=== PATIENT | female | born 1985 | race African-American/Black ===

== ENCOUNTER 2023-11-02 13:51 | Observation (INO) | payer OTHER, SELFPAY ==
[2023-11-02] VITALS (13 sets, daily range): BP systolic 140–195; BP diastolic 82–108; PULSE 91–98; RESP 16–20; TEMP 36.6–37.6; O2SAT 92–100; BMI 73.7
--- NOTE | ~2023-11-02 | CT_ITS ---
EXAMINATION: CT abdomen pelvis w con DATE: 11/02/2023 16:27 INDICATION: band around upper abd/RUQ, RLQ pain TECHNIQUE: Computed tomography (CT) of the abdomen and pelvis was performed with 100 mL Omnipaque-350 intravenous contrast. Automated exposure control and iterative reconstruction technique were employe d. The dose-length product was 1639.30 mGy-cm. COMPARISON: None. FINDINGS: Lower thorax: Unremarkable Liver: Normal. Biliary/Gallbladder: Mild gallbladder distention. Moderate pericholecystic inflammatory change. Galls tones. Hepatomegaly No bile duct dilation. Pancreas: No mass or duct dilation. Spleen: Normal. Adrenals:No mass. Kidneys: No suspicious mass, obstructing stone, or hydronephrosis. GI tract: No small or large bowel dilation. Normal appendix. Mesentery/Peritoneum: Trace perihepatic fluid. No mass or free air.. Retroperitoneum: No mass. Pelvis: Pelvic organs are within normal limits. Soft Tissues: Minimal, uncomplicated fat-containing umbilical hernia. Moderate deep subcutaneous stra nding over the anterior abdomen. Bones: No acute osseous finding. IMPRESSION: CT findings concerning for acute cholecystitis. Subcutaneous fat stranding in the anterior abdomen, probably representing nonspecific soft tissue kathy ma and left there are clinical findings of cellulitis or contusion. Reviewed, dictated and finalized at location K. IMPRESSION: CT findings concerning for acute cholecystitis. Subcutaneous fat stranding in the anterior abdomen, probably representing nonsp ecific soft tissue edema and left there are clinical findings of cellulitis or contusion.
--- NOTE | ~2023-11-02 | US_ITS ---
EXAMINATION: US perc cholecystostomy w imag DATE: 11/03/2023 15:42 INDICATION: Acute cholecystitis. TECHNIQUE: The procedure including the risks, benefits, and alternatives was discussed with the patie nt. Risks discussed included bleeding including hemorrhage, infection, and bile peritonitis. Oral and written consent were obtained. A timeout was performed to verify the patient's name, date of sharmin h, and procedure to be performed. The skin overlying the liver and gallbladder was prepped and draped in usual sterile fashion. Anesthetic was administered with 1% lidocaine subcutaneously. An 8.5 Fr catheter was inserted into the gallbladder by trocar technique. The metal stiffener and trocar needle were removed, and the pigtail tip was locked. Bile was aspirated and sent for culture. The catheter was stitched to the skin with suture. There were no immediate complications. FINDINGS: Ultrasound images demonstrate the catheter within the gallbladder. 6 mL bile was aspirated. IMPRESSION: 1. Successful ultrasound-guided cholecystostomy tube placement. 2. 6 mL black bile was sent for aerobic and anaerobic cultures. 3. A catheter cholangiogram may be performed not less than 48 hours after tube placement if clinicall y indicated to assess cystic duct patency. If cholecystectomy is not eventually performed and the inf ectious episode has resolved, the tube may be removed over a guidewire, preferably not less than 3 we eks after placement to allow time for a mature catheter tract to form to prevent bile leakage and per itonitis. Reviewed, dictated and finalized at location A. IMPRESSION: 1. Successful ultrasound-guided cholecystostomy tube placement. 2. 6 mL black bile was sent for aerobic and anaerobic cultures. 3. A catheter cholangiogram may be performed not less than 48 hours after tube placement if clinically indicated to assess cystic duct patency. If cholecystec riky is not eventually performed and the infectious episode has resolved, the t ube may be removed over a guidewire, preferably not less than 3 weeks after krysta cement to allow time for a mature catheter tract to form to prevent bile leakag e and peritonitis.
--- NOTE | 2023-11-02 15:09 | ED.ABDPAIN ---
HPI - Abdominal Pain General Chief Complaint: Abdominal Pain Stated Complaint: vomiting and RLQ abd pain Time Seen by Provider: 11/02/23 15:10 Focused HPI: Patient is a 38 y/o female who presents to the ED with c/o ABD pain. Patient reports she unintentionally ate pork last week around 10/28. She states she does not typically react well to pork and will have associated GI upset. Began feeling nauseous after eating the pork. Has since developed pain throughout her upper abdomen, like a band around her upper abdomen radiating around her back, as well as pain in her RLQ. She reports N/V over the past few days, as well as constipation. States last BM was 4 days ago. She attempted Goodie Powder and Ex-lax w/o relief of pain. Denies fevers, urinary complaints. GENERAL: Uncomfortable-appearing, morbidly obese with BMI of 73.8, and in no acute distress. HEAD: Normocephalic, atraumatic. CHEST: Clear to auscultation. ?No respiratory distress. HEART: Regular rate and rhythm.? ABD: Diffuse tenderness throughout upper abdomen, worst in epigastric region and RUQ, TTP in RLQ. No rebound. Mildly hypoactive BS. NEURO: ?Alert and oriented x3. Patient screened in triage and initial orders placed.? ?Additional care and disposition to be based upon?diagnostic testing and treatment. Source: patient Mode of arrival: ambulatory Limitations: no limitations Related Data Home Medications Medication Instructions Recorded Confirmed amlodipine 10 mg tablet 10 mg PO DAILY 11/02/23 11/02/23 bupropion HCl 100 mg tablet,12 hr 100 mg PO BID 11/02/23 11/02/23 sustained-release dulaglutide 1.5 mg/0.5 mL 1.5 mg subcut WEEKLY 11/02/23 11/02/23 subcutaneous pen injector (Trulicity) insulin glargine 100 unit/mL (3 20 unit subcut DAILY 11/02/23 11/02/23 mL) subcutaneous pen (Lantus Solostar U-100 Insulin) labetalol 200 mg tablet 200 mg PO BID 11/02/23 11/02/23 metformin 500 mg tablet 500 mg PO BID 11/02/23 11/02/23 Allergies Allergy/AdvReac Type Severity Reaction Status Date / Time No Known Allergies Allergy Verified 11/02/23 15:20 [facility] Past Medical History Medical History Asthma Hypertension Migraine Morbid obesity Type 2 diabetes mellitus Surgical History Surgical History No pertinent past surgical history Social History Social History Social History: Surrogate medical decision maker: Naresh Dong, mother. Code status: Full code. Smoking status: Former smoker Alcohol intake: never Substance use type: marijuana Do You Feel Safe in your Home?: Yes Lack of Transportation: No Lack of Food: Never True Current Housing: I Have Housing Concerned About Future Housing: No Difficulty Paying Gas/Electric Bills: No Difficulty Paying for Meds: No Currently Unemployed: No Education: High School Diploma/GED Difficulty w/ Childcare or Family Care: No Spiritual care concerns: No Course Vital Signs Vital signs: Vital Signs Temperature 98 F 11/02/23 14:12 Pulse Rate 93 11/02/23 14:12 Respiratory Rate 18 11/02/23 14:12 Blood Pressure 152/108 H 11/02/23 14:12 Pulse Oximetry 100 11/02/23 14:12 Oxygen Delivery Room Air 11/02/23 14:12 Temperature 97.7 F 11/04/23 08:00 Pulse Rate 82 11/04/23 08:25 Respiratory Rate 18 11/04/23 08:00 Blood Pressure 143/76 H 11/04/23 08:23 Pulse Oximetry 98 11/04/23 08:00 Oxygen Delivery Room Air 11/04/23 08:25 MDM - Abdominal Pain MDM Narrative Medical decision making narrative: MSE by MARTINA in triage. Lab Data 11/04/23 04:44 11/04/23 04:44 Labs: Lab Results 11/02/23 11/02/23 Range/Units 15:17 17:42 WBC 16.6 H (4.5-10.0) K/mm3 RBC 5.04 (4.2-5.4) M/mm3 Hgb 12.8 (12.0-15.0) g/dL Hct 39.9 (37.0-47.0) % MCV 79.2 L
[2023-11-02] MEDS: ACETAMINOPHEN 500 MG TABLET 1000 MG PO (15:20)
[2023-11-02] MEDS: ONDANSETRON INJ 4 MG/2 ML VIAL IV PUSH ×3 (15:20→22:52)
[2023-11-02 15:22] LABS: Basophils Percent Auto 0.1 % (0.2-1.2); Eosinophils Percent Auto 0.2 % (0-4.4); Hematocrit 39.9 % (37.0-47.0); Hemoglobin 12.8 g/dL (12.0-15.0); Immature Granulocyte Percent A 0.6 % (0-0.5); Lymphocytes Absolute Auto 1.38 K/mm3 (0.9-3.2); Lymphocytes Percent Auto 8.3 % (18.3-44.2); Mean Corpuscular HGB Conc 32.1 g/dl (32-36); Mean Corpuscular Hemoglobin 25.4 pg (26-34); Mean Corpuscular Volume 79.2 fl (80-100); Mean Platelet Volume 10.3 fl (7.4-10.4); Monocytes Absolute Auto 0.8 K/mm3 (0.1-0.6); Monocytes Percent Auto 4.5 % (2.6-8.5); Neutrophils Absolute Auto 14.3 K/mm3 (1.3-6.7); Neutrophils Percent Auto 86.3 % (45.5-73.1); Platelet Count Result 308 k/mm3 (150-375); Red Blood Count 5.04 M/mm3 (4.2-5.4); White Blood Count 16.6 K/mm3 (4.5-10.0)
[2023-11-02 15:46] LABS: Alanine Aminotransferase 49 U/L (6-35); Albumin Level 4.3 g/dL (3.5-5.1); Alkaline Phosphatase 101 U/L (38-126); Anion Gap 6 mmol/L (4-12); Aspartate Amino Transferase 40 U/L (14-36); Bilirubin,Total 1.2 mg/dL (0.2-1.3); Blood Urea Nitrogen 7 mg/dL (7-17); Calcium 9.1 mg/dL (8.4-10.2); Carbon Dioxide 31 mmol/L (22-30); Chloride 99 mmol/L (98-107); Estimated CRCL calculation 166 ml/min; Estimated Glomerular Filt Rate > 60; Glucose 163 mg/dL (65-110); Lipase 33 U/L (23-300); Potassium 4.1 mmol/L (3.4-5.0); Sodium 136 mmol/L (137-145)
--- NOTE | 2023-11-02 15:51 | ED.ABDPAIN ---
HPI - Abdominal Pain General Chief Complaint: Abdominal Pain Stated Complaint: vomiting and RLQ abd pain Time Seen by Provider: 11/02/23 15:10 Source: patient Mode of arrival: ambulatory Limitations: no limitations History of Present Illness HPI narrative: 38 YEARS OLD FEMALE CAME TO THE EMERGENCY ROOM WITH INTERMITTENT PAIN IN THE ABDOMEN STARTED 3 DAYS AGO, GOT WORSE TODAY MAINLY RIGHT LOWER QUADRANT, NO RADIATION, SHARP, STABBING PAIN ASSOCIATED WITH NAUSEA AND FREQUENT VOMITING. SHE DENIES HISTORY OF ABDOMINAL SURGERY. HISTORY OF DIABETES AND HYPERTENSION AND MORBIDLY OBESE. PATIENT DENIES AGGRAVATING OR RELIEVING FACTORS. Related Data Allergies Allergy/AdvReac Type Severity Reaction Status Date / Time No Known Allergies Allergy Verified 11/02/23 15:20 Review of Systems Review of Systems: All systems reviewed & are unremarkable except as noted in HPI and below Exam Narrative: GENERAL APPEARANCE: WELL-DEVELOPED, WELL-NOURISHED, OBESE SKIN: NORMAL COLOR HEAD: NORMOCEPHALIC, NONTRAUMATIC EYES: CLEAR CONJUNCTIVA ENT: OROPHARYNX NORMAL, EARS NORMAL, NOSE NORMAL NECK: SUPPLE, NONTENDER CHEST AND RESPIRATORY: AIRWAY PATENT, NO RESPIRATORY DISTRESS, NO ACCESSORY MUSCLE USE HEART: REGULAR RATE/RHYTHM ABDOMEN: SOFT, DIFFUSE TENDERNESS MAINLY RIGHT ABDOMEN, NO GUARDING OR REBOUND, NO ORGANOMEGALY, QUIET BOWEL SOUNDS VASCULAR: NORMAL PERIPHERAL PULSES, NORMAL CAPILLARY REFILL. MUSCULOSKELETAL: NORMAL RANGE OF MOTION, NONTENDER BACK NEUROLOGIC: ALERT AND ORIENTED ?3, SPOT WASHER IS NORMAL TESTED, NO GROSS MOTOR DEFICIT Course Consultations Consultation #1: DR. INTERIANO Date: 11/02/23 Time: 17:36 Vital Signs Vital signs: Vital Signs Temperature 36.6 C 11/02/23 14:12 Pulse Rate 93 11/02/23 14:12 Respiratory Rate 18 11/02/23 14:12 Blood Pressure 152/108 H 11/02/23 14:12 Pulse Oximetry 100 11/02/23 14:12 Oxygen Delivery Room Air 11/02/23 14:12 Temperature 36.6 C 11/02/23 14:12 Pulse Rate 93 11/02/23 14:12 Respiratory Rate 18 11/02/23 14:12 Blood Pressure 152/108 H 11/02/23 14:12 Pulse Oximetry 100 11/02/23 14:12 Oxygen Delivery Room Air 11/02/23 14:12 MDM - Abdominal Pain MDM Narrative Medical decision making narrative: PATIENT PRESENTS WITH ABDOMINAL PAIN, DIFFERENTIAL DIAGNOSIS INCLUDE APPENDICITIS, CHOLECYSTITIS, COLITIS, DIVERTICULITIS, CONSTIPATION, URINARY TRACT INFECTION, MY PLAN TO GET LABS, CT ABDOMEN AND PELVIS WITH IV CONTRAST TO RULE OUT THE ABOVE DIFFERENTIAL DIAGNOSIS. Differential Diagnosis Differential diagnosis: Likely abdominal pain, acute appendicitis, constipation, diverticulitis and pancreatitis Medical Records Attestation: I reviewed the patient's medical records. Lab Data Attestation: I reviewed the patient's lab results. 11/02/23 15:17 11/02/23 15:17 Labs: Lab Results 11/02/23 Range/Units 15:17 WBC 16.6 H (4.5-10.0) K/mm3 RBC 5.04 (4.2-5.4) M/mm3 Hgb 12.8 (12.0-15.0) g/dL Hct 39.9 (37.0-47.0) % MCV 79.2 L (80-100) fl MCH 25.4 L (26-34) pg MCHC 32.1 (32-36) g/dl RDW 16.0 H (11.5-14.5) % Plt Count 308 (150-375) k/mm3 MPV 10.3 (7.4-10.4) fl Immature Gran % (Auto) 0.6 H (0-0.5) % Neut % (Auto) 86.3 H (45.5-73.1) % Lymph % (Auto) 8.3 L (18.3-44.2) % Hardy % (Auto) 4.5 (2.6-8.5) % Eos % (Auto) 0.2 (0-4.4) % Baso % (Auto) 0.1 L (0.2-1.2) % Lymph # (Auto) 1.38 (0.9-3.2) K/mm3 Hardy # (Auto) 0.8 H (0.1-0.6) K/mm3 Eos # (Auto) 0.0 (0-0.3) K/mm3 Baso # (Auto) 0.0 (0.0-0.1) K/mm3 Abs Immat Gran (auto) 0.10 H (0.00-0.031) K/mm3 Absolute Neuts (auto) 14.3 H (1.3-6
[2023-11-02] MEDS: MORPHINE SULFATE (*CRX) 4 MG/ML INJ IV PUSH (16:43)
[2023-11-02] MEDS: SODIUM CHLORIDE 0.9% IV 1,000 ML 999 ML IV CONT (16:44)
[2023-11-02 18:06] LABS: Appearance Urine Clear (Clear); Bacteria Urine 1+ /hpf; Bilirubin Urine Negative (Negative); Blood Urine Negative (Negative); Color Urine Yellow (Yellow); Glucose Urine UA Negative (Negative); Ketones Urine Negative (Negative); Leukocyte Esterase Ur Negative LEU/UL (Negative); Need Manual Microscopic Reviewed; Nitrate Urine Negative (Negative); Non Pathogenic Casts 0-2; Protein Urine Trace mg/dL (Negative); RBC Urine 0-2 /hpf (0-2); Squamous Epithelial Cell Urine Few /hpf (Few); WBC Urine 0-5 /hpf (0-3); pH Urine 5.5 (5.0-9.0)
[2023-11-02 18:11] LABS: Add Urine Microscopic? YES
[2023-11-02] MEDS: SODIUM CHLORIDE 0.9% IV 1,000 ML 125 ML IV CONT ×2 (18:16→19:28)
[2023-11-02] MEDS: HYDROmorphone HCL INJ (*CRX) 1 MG/ML SYR 0.5 MG IV PUSH (18:17)
--- NOTE | 2023-11-02 18:35 | ADMGEN ---
This patient, Joya Dong, was admitted to Medical Room 252-01. Patient/family oriented to hospital policies and general routines including ID bracelet, bed and alarms, visiting hours, pain management, procedures, bathroom and other care routines, personal items, smoking policy, room service/diet, and visiting hours. Information on how to activate the Rapid Response Team has been discussed. Patient/Family are encouraged to report perceived risks to care and to ask questions if they do not understand what they are told or what they should do.
[2023-11-02 19:00] LABS: Glucose Point of Care 140 mg/dl (65-105)
[2023-11-02] MEDS: PIPERACILLN/TAZ 3.375GM/NS50ML 3.375 GM/50 ML BAG IVPB ×2 (19:25→23:55)
--- NOTE | 2023-11-02 19:38 | PM.IMHP ---
H&P: HPI History of Present Illness Date/Time: 11/02/23 19:45 Chief Complaint: Abdominal pain. Narrative: This is a very pleasant 38-year-old female with hypertension, type 2 diabetes mellitus, and morbid obesity who presented to the emergency department for evaluation of abdominal pain. The patient provides the following history. On the evening of October 28 she had pork for dinner and not long thereafter she developed squeezing pain throughout the upper abdomen, more so on the right, with nausea and vomiting. She has had issues with pork previously causing nausea but nothing like this. Her last bowel movement was 4 days ago and she thought perhaps it was related to constipation so she took Ex-Lax however that provided her with no relief. She continues to have intermittent pain and several times it has awakened her from sleep in the middle of the night. She reports some chills and sweats but no fevers. She has not had any vomiting today. No diarrhea. In the ED: She was afebrile on arrival. Blood pressures have been in the 180s over 90s and she admits she has not taken her medications for 2 days due to her illness. Labs were significant for WBC count of 16.6, hemoglobin 12.8, sodium 136, carbon dioxide 31, glucose 163, AST 40, ALT 49, lipase 33. CT of the abdomen and pelvis showed findings concerning for acute cholecystitis. She received antiemetics, analgesics, and a dose of Zosyn and she is being admitted in this setting for surgery consultation. Review of Systems Review of Systems: 12 systems were reviewed and are negative except for as per HPI. [facility] Past Medical History Medical History Asthma Hypertension Migraine Morbid obesity Type 2 diabetes mellitus Social History Social History Social History: Surrogate medical decision maker: Naresh Dong, mother. Code status: Full code. Smoking status: Former smoker Alcohol intake: never Substance use type: marijuana Do You Feel Safe in your Home?: Yes Lack of Transportation: No Lack of Food: Never True Current Housing: I Have Housing Concerned About Future Housing: No Difficulty Paying Gas/Electric Bills: No Difficulty Paying for Meds: No Currently Unemployed: No Education: High School Diploma/GED Difficulty w/ Childcare or Family Care: No Spiritual care concerns: No Meds Home Medications and Allergies Home Medications Medication Instructions Recorded Confirmed Type amlodipine 10 mg tablet 10 mg PO DAILY 11/02/23 11/02/23 History bupropion HCl 100 mg tablet,12 hr 100 mg PO BID 11/02/23 11/02/23 History sustained-release dulaglutide 1.5 mg/0.5 mL 1.5 mg subcut WEEKLY 11/02/23 11/02/23 History subcutaneous pen injector (Trulicity) insulin glargine 100 unit/mL (3 20 unit subcut DAILY 11/02/23 11/02/23 History mL) subcutaneous pen (Lantus Solostar U-100 Insulin) labetalol 200 mg tablet 200 mg PO BID 11/02/23 11/02/23 History metformin 500 mg tablet 500 mg PO BID 11/02/23 11/02/23 History Allergies Allergy/AdvReac Type Severity Reaction Status Date / Time No Known Allergies Allergy Verified 11/02/23 15:20 Vital Signs Vital Signs - 24 hr 11/02/23 14:12 11/02/23 16:04 11/02/23 16:42 Temperature 98 F Pulse Rate 93 Respiratory Rate 18 Blood Pressure 152/108 H Pulse Oximetry 100 92 98 Oxygen Delivery Room Air 11/02/23 16:45 11/02/23 16:50 11/02/23 17:14 Temperature Pulse Rate 92 Respiratory Rate Blood Pressure 182/90 H Pulse Oximetry 100 92 92 Oxygen Delivery 11/02/23 17:53 11/02/23 18:00 11/02/23 18:33 Temperature 98.7 F Pulse Rate 95 Respiratory Rate Blood Pressure 195/96 H Pulse Oximetry 97 96 Oxygen Delivery 11/02/23 19:09 Temperature Pulse Rate 91 Respiratory Rate 16 Blood Pressure 186/95 H Pulse Oximetry 95 Oxygen Deliv
[2023-11-02] MEDS: HYDROcodone/acetaminophen (*CRX) 5-325 MG TABLET 1 TAB PO (21:44)
[2023-11-02 21:45] LABS: Glucose Point of Care 151 mg/dl (65-105)
[2023-11-02] MEDS: buPROPion HCL SR (12HR) 100 MG TABCR PO (21:45)
[2023-11-02] MEDS: LABETALOL HCL 100 MG TABLET 200 MG PO (21:46)
[2023-11-02] MEDS: amLODIPine BESYLATE 5 MG TABLET PO (21:48)
[2023-11-02 22:08] LABS: Hemoglobin A1C 6.4 % (<5.7)
[2023-11-02] MEDS: KETOROLAC 15 MG/ML VIAL (*BKC) IV PUSH (22:45)
[2023-11-03] VITALS (8 sets, daily range): BP systolic 121–169; BP diastolic 57–95; PULSE 64–99; RESP 18–20; TEMP 36.5–37.6; O2SAT 91–95
[2023-11-03] MEDS: ACETAMINOPHEN 325 MG TABLET 650 MG PO ×2 (02:49→20:50)
[2023-11-03] MEDS: PIPERACILLN/TAZ 3.375GM/NS50ML 3.375 GM/50 ML BAG IVPB ×4 (05:07→23:53)
[2023-11-03 05:45] LABS: Hematocrit 36.7 % (37.0-47.0); Hemoglobin 11.4 g/dL (12.0-15.0); Mean Corpuscular HGB Conc 31.1 g/dl (32-36); Mean Corpuscular Hemoglobin 25.2 pg (26-34); Mean Corpuscular Volume 81.2 fl (80-100); Mean Platelet Volume 10.3 fl (7.4-10.4); Platelet Count Result 278 k/mm3 (150-375); Red Blood Count 4.52 M/mm3 (4.2-5.4); Red Cell Distribution Width 16.1 % (11.5-14.5); White Blood Count 16.9 K/mm3 (4.5-10.0)
[2023-11-03 05:55] LABS: Alanine Aminotransferase 52 U/L (6-35); Albumin Level 3.8 g/dL (3.5-5.1); Alkaline Phosphatase 102 U/L (38-126); Anion Gap 6 mmol/L (4-12); Aspartate Amino Transferase 36 U/L (14-36); Bilirubin,Total 1.3 mg/dL (0.2-1.3); Blood Urea Nitrogen 8 mg/dL (7-17); Calcium 8.1 mg/dL (8.4-10.2); Carbon Dioxide 31 mmol/L (22-30); Chloride 102 mmol/L (98-107); Estimated CRCL calculation 146 ml/min; Estimated Glomerular Filt Rate > 60; Glucose 161 mg/dL (65-110); Magnesium 1.9 mg/dL (1.6-2.3); Potassium 3.6 mmol/L (3.4-5.0); Sodium 139 mmol/L (137-145)
[2023-11-03] MEDS: SODIUM CHLORIDE 0.9% IV 1,000 ML 100 ML IV CONT ×2 (06:34→17:28)
--- NOTE | 2023-11-03 07:39 | PM.IMPN ---
Progress Note: A&P Assessment and Plan (1) Acute cholecystitis: Code(s): K81.0 - Acute cholecystitis Status: Acute Assessment and Plan: Abdominal pain after eating pork CT findings of acute cholecystitis WBC 16.9 TMAX: 99.6 Started on Zosyn IV 100 ml per hour NPO for possible surgery Incentive spirometer Tylenol, [place], and Dilaudid prn for pain Zofran for nausea Surgery consulted, recs appreciated 11/02: I called and left a message with the radiologist asking for percutaneous cholecystostomy tube placement. Will touch base with surgery on current plan. (2) Type 2 diabetes mellitus: Code(s): E11.9 - Type 2 diabetes mellitus without complications Status: Acute Assessment and Plan: On trulicity 1.5 subcut weekly and Lantus 20 units daily. A1C 6.4% Corrective high dose SSI Lantus dose decreased by 20% while hospitalized with carb controlled diet vs NPO Hypoglycemia protocol ordered (3) Hypertension: Code(s): I10 - Essential (primary) hypertension Status: Acute Assessment and Plan: Blood pressures ranging 140-190/90's acute elevation could be 2/2 to pain Continue amlodipine 10 mg daily and labetalol 200 mg BID Hydralazine 10 mg IVP Q 8 hours for SBP > 180 mm hg Monitro daily Plan Feeding: NPO Analgesia: Tylenol, norco, dilaudid Thromboembolic prophylaxis: scd Glycemic control: SSI high dose, Lantus 16 units, hypoglycemia protocol ordered Bowel regimen: will add after surgery Lines: PIV Antibiotics: zosyn Disposition: surgery? Home when medically improved Advance Care Plan I have confirmed that the patient's Advanced Care Plan is present, code status is documented, or surrogate decision maker is listed in patient medical record.: Yes Medication Reconciliation I have utilized all available resources to obtain, update and review the patients current medications (includes all prescriptions, OTC, herbals, cannabis, and nutritional supplements).: Yes Subjective Date/time seen: 11/03/23 07:39 Interval history: This is a very pleasant 38-year-old female with hypertension, type 2 diabetes mellitus, and morbid obesity who presented to the emergency department for evaluation of abdominal pain. 11/02: Patient is seen resting in bed. She appears to not be feeling well. She continues to have right upper quadrant pain and nausea requiring p.r.n. medications. Right now her pain is rated 4-10 which is the best it has been since arriving. She did mention that she had numbness in her fingers and toes prior to this pain occurring and was wondering if the pain was related. I reviewed with her the plan discussed with surgery including options of percutaneous cholecystostomy tube placement here along with IV antibiotics verses attempting transfer for acute need of laparoscopic versus open versus robotic cholecystectomy. The patient would like to attempt cholecystostomy tube placement and plan for outpatient surgery. Review of Systems Review of Systems: 12 systems were reviewed and are negative except for as per HPI. Exam Narrative: General: well appearing, appears stated age. HEENT: normocephalic, atraumatic. Mucous membranes moist. EOMI, PERRLA, bilateral sclera anicteric, no conjunctival injection. Neck supple without JVD, lymphadenopathy, or bruit. Respiratory: clear to auscultation bilaterally. No rales/rhonic/wheezes. Cardiovascular: Regular rate and rhythm, normal S1-S2 upon auscultation. No murmurs, rubs, or clicks. PMI is nondisplaced, capillary refill less than 3 second. Abdomen: Soft, round, obese, pannus present no pulsatile masses, nondistended and moderately tender. No rebound, no guarding. No CVA tenderness, no hepatosplenomegaly. Bowel sounds present to all four quadrants. No high pitch or tinkling sounds, resonant to percussion. Extremities: No cyanosis, clubbing, or edema present. Pulses are palpable 2/2.
[2023-11-03 08:26] LABS: Glucose Point of Care 166 mg/dl (65-105)
[2023-11-03 09:01] LABS: Iron 22 ug/dL (37-170)
[2023-11-03] MEDS: LABETALOL HCL 100 MG TABLET 200 MG PO ×2 (09:05→20:47)
[2023-11-03] MEDS: amLODIPine BESYLATE 5 MG TABLET 10 MG PO (09:06)
[2023-11-03] MEDS: HYDROcodone/acetaminophen (*CRX) 5-325 MG TABLET 1 TAB PO (09:06)
[2023-11-03] MEDS: buPROPion HCL SR (12HR) 100 MG TABCR PO ×2 (09:06→20:47)
[2023-11-03] MEDS: ONDANSETRON INJ 4 MG/2 ML VIAL IV PUSH (09:07)
[2023-11-03 09:10] LABS: Percent Iron Saturation 9 % (20-50)
--- NOTE | 2023-11-03 10:00 | PM.CNGS ---
Assessment and Plan Assessment and plan (1) Acute cholecystitis: Code(s): K81.0 - Acute cholecystitis Status: Acute Assessment and Plan: CT scan of the abdomen pelvis suggests acute cholecystitis. She has been having abdominal pain for 3 days prior to admission. White blood cell count still at 16,000 today and she continues to have persistent abdominal pain and nausea. We had a thorough discussion of treatment options at this point. Her morbid obesity significantly increases her risks of surgery/anesthesia and having to convert to an open procedure if we attempted a laparoscopic cholecystectomy at this facility. We discussed option of trying to acutely transfer her to a facility that has bariatric surgery for possible cholecystectomy. We also discussed the option of continuing antibiotics and proceeding with percutaneous cholecystostomy tube placement at our facility if she is unable to be transferred. This would allow time for the acute episode to be treated and she would eventually discharge with the cholecystostomy tube and follow-up with a bariatric surgeon to be evaluated for an interval cholecystectomy. She agrees to either option. I discussed the case with the Hospitalist, who will attempt transferring her today to a tertiary care facility where bariatric surgery is available. If she is unable to be transferred and/or her clinical status deteriorates, then we will proceed with percutaneous cholecystostomy tube placement by Radiology. (2) Type 2 diabetes mellitus: Code(s): E11.9 - Type 2 diabetes mellitus without complications Status: Acute (3) Hypertension: Code(s): I10 - Essential (primary) hypertension Status: Acute (4) Morbid obesity with BMI of 70 and over, adult: Code(s): E66.01 - Morbid (severe) obesity due to excess calories; Z68.45 - Body mass index [BMI] 70 or greater, adult Status: Acute Plan I have discussed the patient's case and plan of care with Dr. Jeffers. Thank you for allowing us to see the patient in consultation and we will continue to follow along with you. History of Present Illness Consult details Consult date: 11/03/23 Reason for consult: other (Acute cholecystitis) Requesting physician: Moises Beckham MD Narrative: This is a 38-year-old morbidly obese female who presented to the ER yesterday with complaints of right upper quadrant and right lower quadrant abdominal pain. She reports waking up with nausea and vomiting around 4:00 a.m. Thursday morning after eating [employer] at 11:00 p.m. the night before. She began to notice right upper quadrant abdominal pain after vomiting began. She reports the pain radiated around to her mid upper back in a ?banding like? fashion. Her pain radiated down into the right lower quadrant. Her nausea and abdominal pain persisted for the next 2 days. No alleviating factors. She has been unable to tolerate any food or liquids. She continues to have nausea and dry heaves. Due to her persistent symptoms, she came into the ED for evaluation. [place] [id number], total bilirubin 1.2, AST 40, ALT 49, alk-phos 1 1, lipase 33. CT scan of the abdomen and pelvis showed acute cholecystitis with cholelithiasis. She was admitted in the setting to the hospitalist service. She was started on IV Zosyn. Our service was consulted for surgical evaluation of acute cholecystitis. She is seen on the medical floor. She continues have abdominal pain that is being treated with IV Dilaudid. No previous abdominal surgeries. She is a type 2 insulin-dependent diabetic and hemoglobin A1c was 6.4 on admission. Review of Systems Review of Systems: All systems reviewed & are unremarkable except as noted in HPI and below PMFSH Past Medical History Medical History Asthma Hypertension Migraine Morbid obesity Type 2 diabetes mellitus Surgical History
[2023-11-03 10:08] LABS: Folic Acid 3.7 ng/mL (2.76->20)
[2023-11-03 11:46] LABS: Glucose Point of Care 165 mg/dl (65-105)
[2023-11-03] MEDS: HYDROmorphone HCL INJ (*CRX) 1 MG/ML SYR 0.5 MG IV PUSH (13:07)
[2023-11-03 13:20] LABS: INR 1.2
[2023-11-03 13:22] LABS: Partial Thromboplastin Time 32.8 Seconds (22.3-36.8)
[2023-11-03 16:50] LABS: Glucose Point of Care 137 mg/dl (65-105)
[2023-11-03] MEDS: INSULIN GLARGINE (*BKC) 100 UNITS/ML 16 UNITS SUB-Q (17:29)
[2023-11-03 20:47] LABS: Glucose Point of Care 161 mg/dl (65-105)
[2023-11-04] VITALS (9 sets, daily range): BP systolic 120–143; BP diastolic 50–80; PULSE 66–87; RESP 17–20; TEMP 36.2–36.6; O2SAT 95–98
[2023-11-04] MEDS: SODIUM CHLORIDE 0.9% IV 1,000 ML 100 ML IV CONT ×2 (04:00→16:26)
[2023-11-04 04:55] LABS: Basophils Percent Auto 0.1 % (0.2-1.2); Eosinophils Absolute Auto 0.2 K/mm3 (0-0.3); Eosinophils Percent Auto 1.3 % (0-4.4); Hematocrit 32.1 % (37.0-47.0); Hemoglobin 9.8 g/dL (12.0-15.0); Immature Granulocyte Absolute 0.08 K/mm3 (0.00-0.031); Immature Granulocyte Percent A 0.5 % (0-0.5); Lymphocytes Percent Auto 16.4 % (18.3-44.2); Mean Corpuscular HGB Conc 30.5 g/dl (32-36); Mean Corpuscular Hemoglobin 24.9 pg (26-34); Mean Corpuscular Volume 81.5 fl (80-100); Mean Platelet Volume 10.1 fl (7.4-10.4); Monocytes Absolute Auto 0.9 K/mm3 (0.1-0.6); Monocytes Percent Auto 5.2 % (2.6-8.5); Neutrophils Absolute Auto 13.1 K/mm3 (1.3-6.7); Neutrophils Percent Auto 76.5 % (45.5-73.1); Platelet Count Result 252 k/mm3 (150-375); Red Blood Count 3.94 M/mm3 (4.2-5.4); Red Cell Distribution Width 16.4 % (11.5-14.5); White Blood Count 17.1 K/mm3 (4.5-10.0)
[2023-11-04 05:09] LABS: Alanine Aminotransferase 42 U/L (6-35); Albumin Level 3.4 g/dL (3.5-5.1); Alkaline Phosphatase 109 U/L (38-126); Anion Gap 5 mmol/L (4-12); Aspartate Amino Transferase 24 U/L (14-36); Bilirubin,Total 0.9 mg/dL (0.2-1.3); Blood Urea Nitrogen 7 mg/dL (7-17); Calcium 7.8 mg/dL (8.4-10.2); Carbon Dioxide 29 mmol/L (22-30); Chloride 104 mmol/L (98-107); Estimated CRCL calculation 146 ml/min; Estimated Glomerular Filt Rate > 60; Glucose 128 mg/dL (65-110); Potassium 3.3 mmol/L (3.4-5.0); Sodium 138 mmol/L (137-145)
[2023-11-04] MEDS: HYDROcodone/acetaminophen (*CRX) 5-325 MG TABLET 1 TAB PO ×3 (05:09→19:38)
[2023-11-04] MEDS: PIPERACILLN/TAZ 3.375GM/NS50ML 3.375 GM/50 ML BAG IVPB ×4 (05:09→23:14)
--- NOTE | 2023-11-04 07:39 | PM.IMPN ---
Progress Note: A&P Assessment and Plan (1) Acute cholecystitis: Code(s): K81.0 - Acute cholecystitis Status: Acute Assessment and Plan: Abdominal pain after eating pork CT findings of acute cholecystitis WBC 16.9 TMAX: 99.6 Started on Zosyn IV 100 ml per hour NPO for possible surgery Incentive spirometer Tylenol, [place], and Dilaudid prn for pain Zofran for nausea Surgery consulted, recs appreciated 11/02: I called and left a message with the radiologist asking for percutaneous cholecystostomy tube placement. Will touch base with surgery on current plan. 11/03- percutaneous cholecystostomy tube placement today- surgery is updated with plan. continue IV antibiotics. (2) Type 2 diabetes mellitus: Code(s): E11.9 - Type 2 diabetes mellitus without complications Status: Acute Assessment and Plan: On trulicity 1.5 subcut weekly and Lantus 20 units daily. A1C 6.4% Corrective high dose SSI Lantus dose decreased by 20% while hospitalized with carb controlled diet vs NPO Hypoglycemia protocol ordered (3) Hypertension: Code(s): I10 - Essential (primary) hypertension Status: Acute Assessment and Plan: Blood pressures ranging 140-190/90's acute elevation could be 2/2 to pain Continue amlodipine 10 mg daily and labetalol 200 mg BID Hydralazine 10 mg IVP Q 8 hours for SBP > 180 mm hg Monitro daily Plan Feeding: advance diet as tolerated Analgesia: Tylenol, norco, dilaudid Thromboembolic prophylaxis: scd Glycemic control: SSI high dose, Lantus 16 units, hypoglycemia protocol ordered Bowel regimen: will add after surgery Lines: PIV Antibiotics: zosyn Disposition: surgery? Home when medically improved Time Spent With Patient Time with patient: 25 - 35 minutes Subjective Date/time seen: 11/04/23 07:39 Interval history: This is a very pleasant 38-year-old female with hypertension, type 2 diabetes mellitus, and morbid obesity who presented to the emergency department for evaluation of abdominal pain. 11/02: Patient is seen resting in bed. She appears to not be feeling well. She continues to have right upper quadrant pain and nausea requiring p.r.n. medications. Right now her pain is rated 4-10 which is the best it has been since arriving. She did mention that she had numbness in her fingers and toes prior to this pain occurring and was wondering if the pain was related. I reviewed with her the plan discussed with surgery including options of percutaneous cholecystostomy tube placement here along with IV antibiotics verses attempting transfer for acute need of laparoscopic versus open versus robotic cholecystectomy. The patient would like to attempt cholecystostomy tube placement and plan for outpatient surgery. 11/03- pt is seen and examined today. She is on Zosyn IV, afebrile. Vs reviewed. Surgery is following. Had cholecystostomy tube placement- draining- pt already reporting improvement in pain level and abd discomfort. Patient chose to have the cholecystostomy tube rather than trying to acutely transfer to a bariatric surgeon. Continue IV abx. Will advance diet as tolerated. Review of Systems Review of Systems: 12 systems were reviewed and are negative except for as per HPI. Exam Narrative: General: well appearing, appears stated age. HEENT: normocephalic, atraumatic. Mucous membranes moist. EOMI, PERRLA, bilateral sclera anicteric, no conjunctival injection. Neck supple without JVD, lymphadenopathy, or bruit. Respiratory: clear to auscultation bilaterally. No rales/rhonic/wheezes. Cardiovascular: Regular rate and rhythm, normal S1-S2 upon auscultation. No murmurs, rubs, or clicks. PMI is nondisplaced, capillary refill less than 3 second. Abdomen: Soft, round, obese, pannus present no pulsatile masses, nondistended and moderately tender. No rebound, no guarding. No CVA tenderness, no hepatosplenomegaly. Bowel sounds p
[2023-11-04 08:09] LABS: Glucose Point of Care 152 mg/dl (65-105)
[2023-11-04] MEDS: amLODIPine BESYLATE 5 MG TABLET 10 MG PO (08:24)
[2023-11-04] MEDS: LABETALOL HCL 100 MG TABLET 200 MG PO ×2 (08:25→19:38)
[2023-11-04] MEDS: buPROPion HCL SR (12HR) 100 MG TABCR PO ×2 (08:25→19:38)
[2023-11-04] MEDS: ACETAMINOPHEN 325 MG TABLET 650 MG PO (08:31)
--- NOTE | 2023-11-04 10:15 | PM.PNGS ---
Progress Note: A&P Assessment and Plan (1) Acute cholecystitis: Code(s): K81.0 - Acute cholecystitis Status: Acute Assessment and Plan: Improving s/p cholecystostomy tube placement. Patient opted to have the cholecystostomy tube rather than trying to acutely transfer to a bariatric surgeon. Continue IV abx. Will advance diet as tolerated. WBC still 17,000 today but she is clinically improving. Repeat labs tomorrow. Bile cx pending. (2) Morbid obesity with BMI of 70 and over, adult: Code(s): E66.01 - Morbid (severe) obesity due to excess calories; Z68.45 - Body mass index [BMI] 70 or greater, adult Status: Acute Plan I have discussed the patient's case and plan of care with Dr. Jeffers. Subjective Subjective Date/Time Seen: 11/04/23 10:15 Patient reports: no new complaints, feels better, pain is less and tolerating liquids well Interval history: Patient feeling better today. Reports her abdominal pain has improved significantly. Now having more soreness and tenderness where the cholecystostomy tube is located. Her nausea has improved. No vomiting. Exam Const: General: comfortable and no acute distress Orientation/consciousness: patient oriented x3 GI: Inspection: non-distended, Pannus present, obesity and other (cholecystostomy tube c minimal bilious output that is slightly blood-tinged) GI Palp: Yes Soft to palpation, Yes Tenderness to palpation present (GI) (RUQ/RLQ and near cholecystostomy tube, tenderness improved), No Guarding due to palpation present (GI) and No Rebound tenderness present Auscultation: normal bowel sounds Objective Data Vital Signs Vital Signs: Vital Signs - 24 hr 11/03/23 14:00 11/03/23 20:19 11/03/23 20:47 Temperature 99.7 F H 97.8 F Pulse Rate 97 96 98 Respiratory Rate 18 20 Blood Pressure 138/59 L 144/80 H Pulse Oximetry 93 95 Oxygen Delivery 11/03/23 20:00 11/04/23 00:00 11/04/23 05:27 Temperature 97.7 F 97.8 F Pulse Rate 77 83 Respiratory Rate 20 20 Blood Pressure 120/50 L 133/80 Pulse Oximetry 96 95 Oxygen Delivery Room Air 11/04/23 05:29 11/04/23 08:23 07/03/24 08:25 Temperature 97.8 F Pulse Rate 83 82 82 Respiratory Rate 20 Blood Pressure 133/80 143/76 H Pulse Oximetry 95 Oxygen Delivery 11/04/23 08:00 Temperature 97.7 F Pulse Rate 66 Respiratory Rate 18 Blood Pressure 142/52 H Pulse Oximetry 98 Oxygen Delivery Intake/Output Intake/Output: Intake & Output 11/01/23 11/02/23 11/03/23 11/04/23 23:59 23:59 23:59 23:59 Intake Total 1472.9 1927.1 1580 Output Total 156 60 Balance 1472.9 1771.1 1520 Meds/Results Medications: Active Medications Generic Name Dose Route Start Last Admin Trade Name Freq PRN Reason Stop Dose Admin Acetaminophen 650 mg 11/02/23 21:20 11/04/23 08:31 Acetaminophen 325 Mg Tablet PO 650 mg Q6H PRN Administration Mild Pain (1-3) or Fever Hydrocodone Bitart/Acetaminophen 1 tab 11/02/23 21:20 11/04/23 05:09 Hydrocodone/Acetaminophen (*Crx) 5-325 Mg Tablet PO 1 tab Q6H PRN Administration Pain Rated 4-6 Amlodipine Besylate 10 mg 11/03/23 09:00 11/04/23 08:24 Amlodipine Besylate 5 Mg Tablet PO 10 mg DAILY BART Administration Bupropion HCl 100 mg 11/02/23 21:25 11/04/23 08:25 Bupropion Hcl Sr (12hr) 100 Mg Tabcr PO 100 mg Q12HR BART Administration Dextrose 12.5 gm 11/02/23 21:20 Dextrose 50% 25 Gm/50 Ml Syringe IV PUSH PRN PRN Hypoglycemia Protocol Glucagon 1 mg 11/02/23 21:20 Glucagon For Inj 1 Mg Vial IM PRN PRN Hypoglycemia Protocol Glucose 15 gm 11/02/23 21:20 Glucose Oral Gel 15 Gm Of Glucse In 37.5 Gm Tube PO PRN PRN Hypoglycemia Protocol Hydralazine HCl 10 mg 11/03/23 07:49 Hydralazine Hcl 20 Mg/Ml Vial IV PUSH Q8H PRN Blood Pressure - High Hydromorphone HCl 0.5 mg 11/02/23 21:29 11/03/23 13:07 Hydromorphone Hcl Inj
[2023-11-04 12:06] LABS: Glucose Point of Care 126 mg/dl (65-105)
[2023-11-04 16:53] LABS: Glucose Point of Care 113 mg/dl (65-105)
[2023-11-04] MEDS: INSULIN GLARGINE (*BKC) 100 UNITS/ML 16 UNITS SUB-Q (18:31)
[2023-11-04 20:36] LABS: Glucose Point of Care 104 mg/dl (65-105)
[2023-11-05] MEDS: HYDROcodone/acetaminophen (*CRX) 5-325 MG TABLET 1 TAB PO (05:02)
[2023-11-05 05:16] VITALS: BP 148/87; PULSE 87; RESP 18; TEMP 36.9; O2SAT 95
[2023-11-05 05:30] LABS: Basophils Percent Auto 0.3 % (0.2-1.2); Eosinophils Absolute Auto 0.3 K/mm3 (0-0.3); Eosinophils Percent Auto 2.5 % (0-4.4); Hematocrit 32.6 % (37.0-47.0); Hemoglobin 9.9 g/dL (12.0-15.0); Immature Granulocyte Absolute 0.08 K/mm3 (0.00-0.031); Immature Granulocyte Percent A 0.6 % (0-0.5); Lymphocytes Absolute Auto 3.19 K/mm3 (0.9-3.2); Lymphocytes Percent Auto 23.8 % (18.3-44.2); Mean Corpuscular HGB Conc 30.4 g/dl (32-36); Mean Corpuscular Hemoglobin 24.9 pg (26-34); Mean Corpuscular Volume 82.1 fl (80-100); Mean Platelet Volume 10.7 fl (7.4-10.4); Monocytes Absolute Auto 0.5 K/mm3 (0.1-0.6); Monocytes Percent Auto 3.6 % (2.6-8.5); Neutrophils Absolute Auto 9.3 K/mm3 (1.3-6.7); Neutrophils Percent Auto 69.2 % (45.5-73.1); Platelet Count Result 263 k/mm3 (150-375); Red Blood Count 3.97 M/mm3 (4.2-5.4); Red Cell Distribution Width 16.5 % (11.5-14.5); White Blood Count 13.4 K/mm3 (4.5-10.0)
[2023-11-05 05:42] LABS: Alanine Aminotransferase 37 U/L (6-35); Albumin Level 3.4 g/dL (3.5-5.1); Alkaline Phosphatase 119 U/L (38-126); Anion Gap 4 mmol/L (4-12); Aspartate Amino Transferase 19 U/L (14-36); Bilirubin,Total 0.6 mg/dL (0.2-1.3); Blood Urea Nitrogen 5 mg/dL (7-17); Calcium 8.1 mg/dL (8.4-10.2); Carbon Dioxide 29 mmol/L (22-30); Chloride 103 mmol/L (98-107); Estimated CRCL calculation 164 ml/min; Estimated Glomerular Filt Rate > 60; Glucose 111 mg/dL (65-110); Potassium 3.4 mmol/L (3.4-5.0); Sodium 136 mmol/L (137-145)
--- NOTE | 2023-11-05 08:08 | PM.IMPN ---
Progress Note: A&P Assessment and Plan (1) Acute cholecystitis: Code(s): K81.0 - Acute cholecystitis Status: Acute Assessment and Plan: Abdominal pain after eating pork CT findings of acute cholecystitis WBC 16.9 TMAX: 99.6 Started on Zosyn IV 100 ml per hour NPO for possible surgery Incentive spirometer Tylenol, [place], and Dilaudid prn for pain Zofran for nausea Surgery consulted, recs appreciated 11/02: I called and left a message with the radiologist asking for percutaneous cholecystostomy tube placement. Will touch base with surgery on current plan. 11/03- percutaneous cholecystostomy tube placement today- surgery is updated with plan. continue IV antibiotics. 11/04- lost IV access- refusing to get another one as it was attempted and failed. Surgery aware- ok to witch to PO as pt tolerated PO intake well. WBC downtrending. Afebrile. VS reviewed and stable (2) Type 2 diabetes mellitus: Code(s): E11.9 - Type 2 diabetes mellitus without complications Status: Acute Assessment and Plan: On trulicity 1.5 subcut weekly and Lantus 20 units daily. A1C 6.4% Corrective high dose SSI Lantus dose decreased by 20% while hospitalized with carb controlled diet vs NPO Hypoglycemia protocol ordered (3) Hypertension: Code(s): I10 - Essential (primary) hypertension Status: Acute Assessment and Plan: Blood pressures ranging 140-190/90's acute elevation could be 2/2 to pain Continue amlodipine 10 mg daily and labetalol 200 mg BID Hydralazine 10 mg IVP Q 8 hours for SBP > 180 mm hg Monitor daily Plan Feeding: advance diet as tolerated Analgesia: Tylenol, norco, dilaudid Thromboembolic prophylaxis: scd Glycemic control: SSI high dose, Lantus 16 units, hypoglycemia protocol ordered Bowel regimen: will add after surgery Lines: PIV Antibiotics: zosyn Disposition: surgery? Home when medically improved Time Spent With Patient Time with patient: 25 - 35 minutes Subjective Date/time seen: 11/05/23 08:08 Interval history: This is a very pleasant 38-year-old female with hypertension, type 2 diabetes mellitus, and morbid obesity who presented to the emergency department for evaluation of abdominal pain. 11/02: Patient is seen resting in bed. She appears to not be feeling well. She continues to have right upper quadrant pain and nausea requiring p.r.n. medications. Right now her pain is rated 4-10 which is the best it has been since arriving. She did mention that she had numbness in her fingers and toes prior to this pain occurring and was wondering if the pain was related. I reviewed with her the plan discussed with surgery including options of percutaneous cholecystostomy tube placement here along with IV antibiotics verses attempting transfer for acute need of laparoscopic versus open versus robotic cholecystectomy. The patient would like to attempt cholecystostomy tube placement and plan for outpatient surgery. 11/03- pt is seen and examined today. She is on Zosyn IV, afebrile. Vs reviewed. Surgery is following. Had cholecystostomy tube placement- draining- pt already reporting improvement in pain level and abd discomfort. Patient chose to have the cholecystostomy tube rather than trying to acutely transfer to a bariatric surgeon. Continue IV abx. Will advance diet as tolerated. 11/04- pt is seen and examined. Lost IV overnight- had been attempted twice to do it-unable an dpt is refusing now. Surgery is aware. Pt is tolerating po intake well. Her WBC is trending down- 14.2 today (17.1). Will switch to Augmentin and cipro PO- allergies reviewed Review of Systems Review of Systems: 12 systems were reviewed and are negative except for as per HPI. Exam Narrative: General: well appearing, appears stated age. HEENT: normocephalic, atraumatic. Mucous membranes moist. EOMI, PERRLA, bilateral sclera anicteric, no conjunctival injection. N
[2023-11-05 08:20] LABS: Glucose Point of Care 105 mg/dl (65-105)
[2023-11-05] MEDS: buPROPion HCL SR (12HR) 100 MG TABCR PO (09:44)
[2023-11-05] MEDS: CIPROFLOXACIN 500 MG TAB PO (09:44)
[2023-11-05] MEDS: SACCHAROMYCES BOULARDII 250 MG CAPSULE PO ×2 (09:44→12:34)
[2023-11-05] MEDS: AMOXICILLIN/CLAVULANATE K 875-125 MG TAB 1 TABLET PO (09:44)
[2023-11-05] MEDS: amLODIPine BESYLATE 5 MG TABLET 10 MG PO (09:44)
[2023-11-05 09:45] VITALS: PULSE 85
[2023-11-05] MEDS: LABETALOL HCL 100 MG TABLET 200 MG PO (09:45)
[2023-11-05] MEDS: ACETAMINOPHEN 325 MG TABLET 650 MG PO (10:24)
--- NOTE | 2023-11-05 10:44 | PM.PNGS ---
Progress Note: A&P Assessment and Plan (1) Acute cholecystitis: Code(s): K81.0 - Acute cholecystitis Status: Acute Assessment and Plan: doing well, cont drain, ok to switch to po abx and dc home if ok c medicine, will need interval jessica c bariatric surgery Subjective Subjective Date/Time Seen: 11/05/23 10:44 Interval history: doing well, feels much better, vladislav low fat diet Review of Systems Review of Systems: All systems reviewed & are unremarkable except as noted in HPI and below Exam Const: General: cooperative, comfortable and no acute distress Resp: Auscultation: clear to auscultation bilaterally Cardio: Rate: regular rate Rhythm: regular rhythm GI: Inspection: normal to inspection and non-distended GI Palp: Yes abdominal tenderness and Yes Soft to palpation Other: jessica drain c bilious drainage Objective Data Vital Signs Vital Signs: Vital Signs - 24 hr 11/04/23 14:00 11/04/23 19:38 11/04/23 19:47 Temperature 36.5 C 36.2 C L Pulse Rate 68 87 87 Respiratory Rate 18 17 Blood Pressure 140/72 142/61 H Pulse Oximetry 98 97 11/05/23 05:16 11/05/23 09:45 Temperature 36.9 C Pulse Rate 87 85 Respiratory Rate 18 Blood Pressure 148/87 H Pulse Oximetry 95 Intake/Output Intake/Output: Intake & Output 11/02/23 11/03/23 11/04/23 11/05/23 23:59 23:59 23:59 23:59 Intake Total 1472.9 1927.1 4164 1570 Output Total 156 160 Balance 1472.9 1771.1 4004 1570 Meds/Results Medications: Active Medications Generic Name Dose Route Start Last Admin Trade Name Freq PRN Reason Stop Dose Admin Acetaminophen 650 mg 11/02/23 21:20 11/05/23 10:24 Acetaminophen 325 Mg Tablet PO 650 mg Q6H PRN Administration Mild Pain (1-3) or Fever Hydrocodone Bitart/Acetaminophen 1 tab 11/02/23 21:20 11/05/23 05:02 Hydrocodone/Acetaminophen (*Crx) 5-325 Mg Tablet PO 1 tab Q6H PRN Administration Pain Rated 4-6 Amlodipine Besylate 10 mg 11/03/23 09:00 11/05/23 09:44 Amlodipine Besylate 5 Mg Tablet PO 10 mg DAILY BART Administration Amoxicillin/Clavulanate Potassium 1 tablet 11/05/23 09:00 11/05/23 09:44 Amoxicillin/Clavulanate K 875-125 Mg Tab PO 1 tablet Q12HR BART Administration Bupropion HCl 100 mg 11/02/23 21:25 11/05/23 09:44 Bupropion Hcl Sr (12hr) 100 Mg Tabcr PO 100 mg Q12HR BART Administration Ciprofloxacin 500 mg 11/05/23 09:00 11/05/23 09:44 Ciprofloxacin 500 Mg Tab PO 500 mg Q12HR BART Administration Dextrose 12.5 gm 11/02/23 21:20 Dextrose 50% 25 Gm/50 Ml Syringe IV PUSH PRN PRN Hypoglycemia Protocol Glucagon 1 mg 11/02/23 21:20 Glucagon For Inj 1 Mg Vial IM PRN PRN Hypoglycemia Protocol Glucose 15 gm 11/02/23 21:20 Glucose Oral Gel 15 Gm Of Glucse In 37.5 Gm Tube PO PRN PRN Hypoglycemia Protocol Hydralazine HCl 10 mg 11/03/23 07:49 Hydralazine Hcl 20 Mg/Ml Vial IV PUSH Q8H PRN Blood Pressure - High Hydromorphone HCl 0.5 mg 11/02/23 21:29 11/03/23 13:07 Hydromorphone Hcl Inj (*Crx) 1 Mg/Ml Syr IV PUSH 0.5 mg Q3H PRN Administration Pain Rated 7-10 Sodium Chloride 1,000 mls @ 100 mls/hr 11/02/23 17:30 11/05/23 01:50 Normal Saline Iv IV CONT 0 mls/hr .Q10H BART Infusion Dextrose 1,000 mls @ 100 mls/hr 11/02/23 21:20 Dextrose 5% 1,000 Ml IVPB PRN PRN Hypoglycemia Protocol Insulin Aspart 2 - 4 units 11/02/23 21:25 11/04/23 19:40 Insulin Aspart (*Bkc) 100 Units/Ml SUB-Q Not Given HS [facility] Protocol Insulin Aspart 4 - 8 units 11/03/23 08:00 11/05/23 08:47 Insulin Aspart (*Bkc) 100 Units/Ml SUB-Q Not Given TIDWM [facility] Protocol Insulin Glargine 16 units 11/03/23 18:00 11/04/23 18:31 Insulin Glargine (*Bkc) 100 Units/Ml SUB-Q 16 units DAILY@1800 BART Administration Labetalol HCl 200 mg 11/02/23 21:20 11/05/23 09:45 Labetalol Hcl 1
[2023-11-05 11:58] LABS: Glucose Point of Care 124 mg/dl (65-105)
--- NOTE | 2023-11-05 12:48 | PM.DS ---
DS: Admitting Diagnosis Discharge Date 11/04 Admitting Diagnosis abd pain DS: Discharge Diagnosis Discharge Diagnosis (1) Acute cholecystitis: Code(s): K81.0 - Acute cholecystitis Status: Acute Assessment and Plan: Abdominal pain after eating pork CT findings of acute cholecystitis WBC 16.9 TMAX: 99.6 Started on Zosyn IV 100 ml per hour NPO for possible surgery Incentive spirometer Tylenol, [place], and Dilaudid prn for pain Zofran for nausea Surgery consulted, recs appreciated 11/02: I called and left a message with the radiologist asking for percutaneous cholecystostomy tube placement. Will touch base with surgery on current plan. 11/03- percutaneous cholecystostomy tube placement today- surgery is updated with plan. continue IV antibiotics. 11/04- lost IV access- refusing to get another one as it was attempted and failed. Surgery aware- ok to witch to PO as pt tolerated PO intake well. WBC downtrending. Afebrile. VS reviewed and stable seen per surg: doing well, cont drain, ok to switch to po abx and dc home if ok c medicine, will need interval jessica c bariatric surgery (2) Type 2 diabetes mellitus: Code(s): E11.9 - Type 2 diabetes mellitus without complications Status: Acute Assessment and Plan: On trulicity 1.5 subcut weekly and Lantus 20 units daily. A1C 6.4% Corrective high dose SSI Lantus dose decreased by 20% while hospitalized with carb controlled diet vs NPO Hypoglycemia protocol ordered (3) Hypertension: Code(s): I10 - Essential (primary) hypertension Status: Acute Assessment and Plan: Blood pressures ranging 140-190/90's acute elevation could be 2/2 to pain Continue amlodipine 10 mg daily and labetalol 200 mg BID Hydralazine 10 mg IVP Q 8 hours for SBP > 180 mm hg Monitor daily Plan final dx: acute cholecystitis Feeding: advance diet as tolerated Analgesia: Tylenol, norco, dilaudid Thromboembolic prophylaxis: scd Glycemic control: SSI high dose, Lantus 16 units, hypoglycemia protocol ordered Bowel regimen: will add after surgery Lines: PIV Antibiotics: zosyn Disposition: surgery? Home when medically improved DS: Summary Hospital Course Hospital Course: This is a very pleasant 38-year-old female with hypertension, type 2 diabetes mellitus, and morbid obesity who presented to the emergency department for evaluation of abdominal pain. 11/02: Patient is seen resting in bed. She appears to not be feeling well. She continues to have right upper quadrant pain and nausea requiring p.r.n. medications. Right now her pain is rated 4-10 which is the best it has been since arriving. She did mention that she had numbness in her fingers and toes prior to this pain occurring and was wondering if the pain was related. I reviewed with her the plan discussed with surgery including options of percutaneous cholecystostomy tube placement here along with IV antibiotics verses attempting transfer for acute need of laparoscopic versus open versus robotic cholecystectomy. The patient would like to attempt cholecystostomy tube placement and plan for outpatient surgery. 11/03- pt is seen and examined today. She is on Zosyn IV, afebrile. Vs reviewed. Surgery is following. Had cholecystostomy tube placement- draining- pt already reporting improvement in pain level and abd discomfort. Patient chose to have the cholecystostomy tube rather than trying to acutely transfer to a bariatric surgeon. Continue IV abx. Will advance diet as tolerated. see n per surgery, doing well, cont drain, ok to switch to po abx and dc home- will need interval jessica c bariatric surgery Status at Discharge Functional status at discharge: independent ambulation Overall status at discharge: patient is back to baseline Time Spent with Patient Time attestation: Total time spent providing and/or coordinating discharge services: Time spent: Less than 30
== END 2023-11-05 15:45 | disposition home or self-care (01) ==
LOC: ANHED 17:36 → ANH2MED 18:01
PROVIDERS: Physician Assistant; Admitting Provider Internal Medicine; Emergency Provider Emergency Medicine; PCP Nurse Practitioner Family; Visit Provider Nurse Practitioner Acute Care
DX: K81.0 Acute cholecystitis (principal); I10 Essential (primary) hypertension; E11.9 Type 2 diabetes mellitus without complications; E66.01 Morbid (severe) obesity due to excess calories; Z68.45 Body mass index [BMI] 70 or greater, adult; Z79.85 Long-term (current) use of injectable non-insulin antidiabetic drugs; Z79.4 Long term (current) use of insulin; Z79.84 Long term (current) use of oral hypoglycemic drugs; Z87.891 Personal history of nicotine dependence
CPT/HCPCS: 36415; 47490; 74177; 80053; 81001; 82607; 82746; 82948; 83036; 83540; 83550; 83690; 83735; 85025; 85027; 85610; 85730; 87070; 87075; 87205; 96361; 96365; 96374; 96375; 96376; 99285; A9270; C1729; G0378; G0379; J1170; J1815; J1885; J2270; J2405; J2543; J7030; Q9967

== ENCOUNTER 2023-11-23 00:04 | Emergency (ER) | payer OTHER, SELFPAY ==
--- NOTE | ~2023-11-23 | CT_ITS ---
EXAMINATION: CT abdomen pelvis w con DATE: 11/23/2023 03:50 INDICATION: Drainage and pain at the cholecystostomy tube insertion. TECHNIQUE: Computed tomography (CT) of the abdomen and pelvis was performed with 100 mL Omnipaque-350 intravenous contrast. Automated exposure control and iterative reconstruction technique were employe d. The dose-length product was 1684.61 mGy-cm. COMPARISON: 11/02/2023 FINDINGS: Mild mosaic attenuation at the lung bases likely related to expiratory phase of imaging. Heart size i s normal. No pericardial or pleural effusion. Hepatosplenomegaly which may relate to body habitus. Pa ncreas, bilateral adrenal glands and kidneys are normal. The latter, uterus and bilateral adnexa are unremarkable. Bowels including the appendix are normal. Percutaneous transhepatic cholecystostomy tube with loop formed within the gallbladder which demonstr ates persistent wall thickening and residual small amount of fluid within the gallbladder. There is a lso persistent mild stranding about the gallbladder wall and some asymmetric mild relative thickening of the right rectus abdominis muscle without an evident hematoma which likely represents inflammatio n related to acute cholecystitis. No evident biloma. No abscess or free intraperitoneal gas or fluid. No pathologically enlarged abdominal or pelvic lymphadenopathy. Mild scattered degenerative skeletal changes. IMPRESSION: 1. Percutaneous cholecystostomy tube in expected position with persistent mild stranding about the ga llbladder and mild asymmetric thickening of the right rectus abdominis muscle without evident hematom a likely secondary to inflammation related to as of yet unresolved acute cholecystitis. Reviewed, dictated and finalized at location A. IMPRESSION: 1. Percutaneous cholecystostomy tube in expected position with persistent mild stranding about the gallbladder and mild asymmetric thickening of the right rec tus abdominis muscle without evident hematoma likely secondary to inflammation related to as of yet unresolved acute cholecystitis.
[2023-11-23 00:10] VITALS: BP 147/84; PULSE 104; RESP 22; TEMP 36.4; O2SAT 99
--- NOTE | 2023-11-23 02:36 | ED.GENADULT ---
HPI - General Adult General Chief complaint: Abdominal Pain Stated complaint: abd pain, gall bladder issues Time Seen by Provider: 11/23/23 02:20 History of Present Illness HPI narrative: This is a 38-year-old female with a percutaneous gallbladder drain presenting for pain and discharged from the drain site. Patient had acute cholecystitis and had a drain placed on November 02. The patient was discharged was doing well until yesterday. Yesterday she noticed that there was some greenish discharge on her bandage and she has tenderness around the insertion site. She notes subjective fever and chills but no fevers over 100.4. She has been nauseous without vomiting. Last bowel movement was 4 days ago. Related Data Home Medications Medication Instructions Recorded Confirmed amlodipine 10 mg tablet 10 mg PO DAILY 11/02/23 11/02/23 bupropion HCl 100 mg tablet,12 hr 100 mg PO BID 11/02/23 11/02/23 sustained-release dulaglutide 1.5 mg/0.5 mL 1.5 mg subcut WEEKLY 11/02/23 11/02/23 subcutaneous pen injector (Trulicity) insulin glargine 100 unit/mL (3 20 unit subcut DAILY 11/02/23 11/02/23 mL) subcutaneous pen (Lantus Solostar U-100 Insulin) labetalol 200 mg tablet 200 mg PO BID 11/02/23 11/02/23 metformin 500 mg tablet 500 mg PO BID 11/02/23 11/02/23 Allergies Allergy/AdvReac Type Severity Reaction Status Date / Time No Known Allergies Allergy Verified 11/02/23 15:20 [facility] Past Medical History Medical History Asthma Hypertension Migraine Morbid obesity Type 2 diabetes mellitus Surgical History Surgical History No pertinent past surgical history Social History Social History Social History: Surrogate medical decision maker: Naresh Dong, mother. Code status: Full code. Smoking status: Former smoker Alcohol intake: never Substance use type: marijuana Do You Feel Safe in your Home?: Yes Lack of Transportation: No Lack of Food: Never True Current Housing: I Have Housing Concerned About Future Housing: No Difficulty Paying Gas/Electric Bills: No Difficulty Paying for Meds: No Currently Unemployed: No Education: High School Diploma/GED Difficulty w/ Childcare or Family Care: No Spiritual care concerns: No Exam Narrative: APPEARANCE: No apparent distress. Head: atraumatic. EYES: EOMI, NOSE: Atraumatic NECK: Trachea midline RESPIRATORY: No increased rate of breathing CARDIOVASCULAR: Tachycardic ABDOMINAL: Mild erythema and tenderness at the cholecystostomy insertion site rest the abdomen is soft and nontender although exam is limited by body habitus. MUSCULOSKELETAl: No obvious deformities NEURO: Alert. Moving 4/4 extremities SKIN:: Warm, dry. Normal color PSYCHIATRIC: Normal affect Course Vital Signs Vital signs: Vital Signs Temperature 97.6 F 11/23/23 00:10 Pulse Rate 104 H 11/23/23 00:10 Respiratory Rate 22 H 11/23/23 00:10 Blood Pressure 147/84 H 11/23/23 00:10 Pulse Oximetry 99 11/23/23 00:10 Oxygen Delivery Room Air 11/23/23 00:10 Temperature 97.6 F 11/23/23 00:10 Pulse Rate 92 11/23/23 06:19 Respiratory Rate 19 11/23/23 06:19 Blood Pressure 146/84 H 11/23/23 06:19 Pulse Oximetry 98 11/23/23 06:19 Oxygen Delivery Room Air 11/23/23 00:10 Medical Decision Making [facility] Narrative Medical decision making narrative: -Course: 38-year-old female with a percutaneous cholecystostomy drain presenting with pain and drainage from the insertion site. CT abdomen pelvis ordered to evaluate tube location. Stat Rad interpretation is CT showed the cholecystostomy tube with its tip in the bladder. There is thickening the gallbladder wall and surrounding inflammatory changes. No fluid collection to suggest abscess formation. The subcutaneous edema
[2023-11-23] MEDS: SODIUM CHLORIDE 0.9% IV 2,000 ML 999 ML IV CONT (02:57)
[2023-11-23] MEDS: HYDROmorphone HCL INJ (*CRX) 1 MG/ML SYR IV PUSH (02:57)
[2023-11-23 02:58] VITALS: BP 155/84; PULSE 100; RESP 20; O2SAT 99
[2023-11-23 03:09] LABS: Basophils Percent Auto 0.2 % (0.2-1.2); Eosinophils Absolute Auto 0.4 K/mm3 (0-0.3); Hematocrit 35.2 % (37.0-47.0); Hemoglobin 10.9 g/dL (12.0-15.0); Immature Granulocyte Absolute 0.06 K/mm3 (0.00-0.031); Immature Granulocyte Percent A 0.5 % (0-0.5); Lymphocytes Absolute Auto 2.92 K/mm3 (0.9-3.2); Lymphocytes Percent Auto 22.1 % (18.3-44.2); Mean Corpuscular Hemoglobin 25.2 pg (26-34); Mean Corpuscular Volume 81.3 fl (80-100); Mean Platelet Volume 11.3 fl (7.4-10.4); Monocytes Absolute Auto 0.7 K/mm3 (0.1-0.6); Monocytes Percent Auto 5.6 % (2.6-8.5); Neutrophils Absolute Auto 9.1 K/mm3 (1.3-6.7); Neutrophils Percent Auto 68.6 % (45.5-73.1); Platelet Count Result 340 k/mm3 (150-375); Red Blood Count 4.33 M/mm3 (4.2-5.4); Red Cell Distribution Width 16.6 % (11.5-14.5); White Blood Count 13.2 K/mm3 (4.5-10.0)
[2023-11-23 03:25] LABS: Alanine Aminotransferase 48 U/L (6-35); Albumin Level 3.9 g/dL (3.5-5.1); Alkaline Phosphatase 116 U/L (38-126); Anion Gap 10 mmol/L (4-12); Aspartate Amino Transferase 25 U/L (14-36); Bilirubin,Total 0.5 mg/dL (0.2-1.3); Blood Urea Nitrogen 12 mg/dL (7-17); Calcium 8.6 mg/dL (8.4-10.2); Carbon Dioxide 29 mmol/L (22-30); Chloride 100 mmol/L (98-107); Estimated CRCL calculation 166 ml/min; Estimated Glomerular Filt Rate > 60; Glucose 145 mg/dL (65-110); Lipase 34 U/L (23-300); Potassium 3.7 mmol/L (3.4-5.0); Sodium 139 mmol/L (137-145)
[2023-11-23 03:33] LABS: Appearance Urine Cloudy (Clear); Bacteria Urine Rare /hpf; Bilirubin Urine Negative (Negative); Blood Urine Negative (Negative); Color Urine Dark Yellow (Yellow); Glucose Urine UA Negative (Negative); Ketones Urine Trace mg/dL (Negative); Leukocyte Esterase Ur Negative LEU/UL (Negative); Mucus Urine Present /lpf; Need Manual Microscopic Reviewed; Nitrate Urine Negative (Negative); Protein Urine 1+ mg/dL (Negative); RBC Urine 0-2 /hpf (0-2); Specific Grav Ur 1.034 (1.001-1.035); Squamous Epithelial Cell Urine Few /hpf (Few); WBC Urine 0-5 /hpf (0-3); pH Urine 5.5 (5.0-9.0)
[2023-11-23 03:35] LABS: Add Urine Microscopic? YES
[2023-11-23 06:19] VITALS: BP 146/84; PULSE 92; RESP 19; O2SAT 98
[2023-11-23] MEDS: ACETAMINOPHEN 500 MG TABLET 1000 MG PO (06:54)
[2023-11-23] MEDS: KETOROLAC 15 MG/ML VIAL (*BKC) IV PUSH (06:54)
[2023-11-23 06:58] VITALS: BP 137/89; PULSE 92; RESP 19; O2SAT 97
== END 2023-11-23 07:01 | disposition home or self-care (01) ==
PROVIDERS: Emergency Provider Emergency Medicine; PCP Nurse Practitioner Family
DX: K81.9 Cholecystitis, unspecified (principal); I10 Essential (primary) hypertension; E11.9 Type 2 diabetes mellitus without complications; J45.909 Unspecified asthma, uncomplicated; E66.01 Morbid (severe) obesity due to excess calories; Z68.45 Body mass index [BMI] 70 or greater, adult; Z96.89 Presence of other specified functional implants; Z87.891 Personal history of nicotine dependence; Z79.84 Long term (current) use of oral hypoglycemic drugs; Z79.85 Long-term (current) use of injectable non-insulin antidiabetic drugs; Z79.4 Long term (current) use of insulin; Z79.899 Other long term (current) drug therapy
CPT/HCPCS: 36415; 74177; 80053; 81001; 81025; 83690; 85025; 96361; 96374; 96375; 99284; A9270; J1170; J1885; J7030; Q9967